=== PATIENT | female | born 1975 | race Caucasian/White ===

== ENCOUNTER 2018-02-21 13:09 | Emergency (ER) | payer OTHER ==
[2018-02-21] MEDS ORDERED: FENTANYL CITRATE INJ/PF 100 MCG/2 ML AMPUL IV ONE ×2 (13:21→14:20)
[2018-02-21] MEDS ORDERED: HYDROMORPHONE HCL INJ/PF 2 MG/ML AMPULE IV ONE (13:21)
[2018-02-21] MEDS ORDERED: HYDROMORPHONE HCL INJ/PF 2 MG/ML AMPULE ONE (13:23)
[2018-02-21] MEDS ORDERED: DIPH/PERTUSS(ACELL)/TETANUS VAC/PF 0.5 ML SYR (>=10YO) IM ONE (13:36)
[2018-02-21] MEDS ORDERED: CEFAZOLIN 2 GM/D5W RTU 2 GM/50 ML RTUPB IV ONE (13:37)
[2018-02-21] MEDS ORDERED: LIDOCAINE 1%/EPINEPHRINE INJ 20 ML VIAL INJ ONE (13:38)
--- NOTE | 2018-02-21 13:41 | RADIOLOGY REPORT (SQ) ---
EXAM DESCRIPTION: FOOT RIGHT COMPLETE COMPLETED DATE/TIME: 02/21/2018 1:30 pm REASON FOR STUDY: injury COMPARISON: None. NUMBER OF VIEWS: Three views. TECHNIQUE: AP, lateral and oblique radiographic images acquired of the right foot. LIMITATIONS: None. FINDINGS: MINERALIZATION: Normal. BONES: No acute fracture or dislocation. No worrisome bone lesions. JOINTS: Joint spaces maintained. SOFT TISSUES: Soft tissue injury noted anteriorly. No metallic foreign bodies. OTHER: No other significant finding. IMPRESSION: No acute fractures. TECHNICAL DOCUMENTATION: JOB ID: [id number] [employer]- All Rights Reserved Reading location - IP/workstation name: [facility]
[2018-02-21] MEDS ORDERED: LORAZEPAM INJ 2 MG/1 ML VIAL IV ONE (14:21)
--- NOTE | 2018-02-21 14:28 | ER Document Report ---
ED Wound - General Chief Complaint: Laceration Stated Complaint: RIGHT FOOT PAIN Time Seen by Provider: 02/21/18 13:35 Mode of Arrival: Ambulatory Information source: Patient - HPI Patient complains to provider of: Laceration Occurred: Just prior to arrival Onset/Duration: Sudden Quality of pain: Sharp Severity: Severe Context: Injury Skin Temperature: Warm Skin Color: Normal Capillary refill: < 3 seconds Sensations intact: No - INSENSATE TOES #1,2,3 Distal pulses present: No - UNABLE TO PALPATE Associated Symptoms: None Notes: Patient states she had podiatric surgery several years ago and since then has been unable to flex the toes on the right foot. She still states the sensation in the foot and toes was intact prior to today's injury. - Related Data Allergies/Adverse Reactions: codeine Allergy (Verified 02/21/18 13:15) Past Medical History - General Information source: Patient - Social History Smoking Status: Unknown if Ever Smoked Cigarette use (# per day): No Frequency of alcohol use: None Drug Abuse: None Lives with: Family Family History: Reviewed & Not Pertinent Patient has suicidal ideation: No Patient has homicidal ideation: No - Past Medical History Cardiac Medical History: Reports: None Pulmonary Medical History: Reports: None EENT Medical History: Reports: None Neurological Medical History: Reports: None Endocrine Medical History: Reports: None. Denies: Hx Diabetes Mellitus Type 1, Hx Diabetes Mellitus Type 2 Renal/ Medical History: Reports: None Malignancy Medical History: Reports: None GI Medical History: Reports: None Musculoskeltal Medical History: Reports None Psychiatric Medical History: Reports: Hx Anxiety Review of Systems - Review of Systems Constitutional: No symptoms reported EENT: No symptoms reported Cardiovascular: No symptoms reported Respiratory: No symptoms reported Gastrointestinal: No symptoms reported Genitourinary: No symptoms reported Female Genitourinary: No symptoms reported Musculoskeletal: See HPI Skin: See HPI Neurological/Psychological: See HPI Physical Exam - Vital signs Vitals: Resp 20 02/21/18 13:22 - General General appearance: Anxious In distress: Mild - HEENT Head: Normocephalic Eyes: Normal Conjunctiva: Normal Ears: Normal Nasal: Normal Mouth/Lips: Normal Mucous membranes: Normal - Respiratory Respiratory status: No respiratory distress - Cardiovascular Rhythm: Regular - Abdominal Inspection: Normal Distension: No distension - Extremities General upper extremity: Normal inspection General lower extremity: No: Normal inspection - R. FOOT (SEE BELOW) Foot: Laceration - 4 cm TRANSVERSE OVER DISTAL MC's (SEE GRAPHIC) - Neurological Neuro grossly intact: No Cognition: Normal Orientation: AAOx4 Sensory: Other - LIGHT TOUCH PERCEPTION ABSENT TOES #1&2, DECREASED #3 - Psychological Associated symptoms: Normal affect, Normal mood - Skin Skin Temperature: Warm Skin Moisture: Dry Skin Color: Normal Skin Turgor: Elastic Skin irregularity: Laceration - SEE ABOVE Course - Vital Signs Vital signs: Temp Pulse Resp BP Pulse Ox 98.1 F 20 133/81 H 100 02/21/18 14:01 02/21/18 14:01 02/21/18 14:01 02/21/18 14:01 Procedures - Laceration/Wound Repair Right Foot Time completed: 15:12 Wound length (cm): 4.0 Wound's Depth, Shape: Into muscle, Linear, Contused tissue Laceration pre-procedure: Sterile PPE donned, Sterile drapes applied, Shur- Clens applied Anesthetic type: 1% Lidocaine w/epi Volume Anesthetic (mLs): 4 Wound explored: Clean, No foreign body removed Irrigated w/ Saline (mLs): 200 Wound Debrided: Minimal Wound Repaired With: Sutures Suture Size/Type: 4:0, Prolene Number of Sutures: 7 Layer Closure?: No Post-procedure wound care: Sterile dressing applied, Splint applied Post-procedure NV exam normal: No - UNCHANGED FROM PRE-PROCEDURE Complications: No Adult Front & Back picture: 1 - 4 cm LACERATION, SUTURED Discharge - Discharge Clinical Impression: Laceration of foot involving extensor tendon Condition: Stable Disposition: HOME, SELF-CARE Instructions: Ice & Elevation (OM), Laceration Care (OM), Oral Narcotic Medication (OM), Prophylactic Antibiotic (OM), Tendon Laceration Referral ([facility] ), Tetanus Immunization Given ([facility]) Additional Instructions: KEEP BANDAGE INTACT, CLEAN, AND DRY. CRUTCHES, NO WEIGHT BEARING ON RIGHT FOOT FOR NEXT 3 DAYS. KEEP RIGHT FOOT ELEVATED MUCH POSSIBLE. MEDS DIRECTED. FOLLOW UP WITH DR. DILLON IN 3-7 DAYS, CALL OFFICE TODAY FOR APPOINTMENT. RETURN TO E.R. FOR WOUND CHECK FEBRUARY 23. RETURN SOONER IF PROBLEMS, ANY TIME. Prescriptions: Hydromorphone HCl [Dilaudid 2 Mg Tablet] 2 mg PO Q4HP PRN #10 tablet PRN Reason: For Pain Cephalexin Monohydrate [Keflex 500 mg Capsule] 500 mg PO QID #20 capsule Referrals: UZIEL DILLON DPM [ACTIVE STAFF] - Follow up as needed (NEEDS PODIATRY FOLLOW- UP FOR LACERATION RIGHT FOOT, PROBABLY NEEDS EXTENSOR TENDON REPAIR)
[2018-02-21] MEDS ORDERED: HYDROMORPHONE HCL 2 MG TABLET PO ONE (15:24)
[2018-02-21 16:10] VITALS: BP 114/24
== END 2018-02-21 16:10 | disposition home or self-care (01) ==
LOC: ER 13:09
DX: S96.121A Laceration of muscle and tendon of long extensor muscle of toe at ankle and foot level, right foot, initial encounter (principal); S91.311A Laceration without foreign body, right foot, initial encounter; W28.XXXA Contact with powered lawn mower, initial encounter; Y93.H9 Activity, other involving exterior property and land maintenance, building and construction; Z88.5 Allergy status to narcotic agent
CPT/HCPCS: 99283; 90471; 96375; 96365; 73630; 90715; 12002; J3010; J3490; J1170; J2060; J0690